=== PATIENT | female | born 1975 | race Caucasian/White ===

== ENCOUNTER → 2017-02-02 | Outpatient (CLI) | payer BC ==
[~2017-02-02] MED LIST: FERR325T51 PO; GADAVIST IV PRN
--- NOTE | 2017-02-02 09:42 | DIAGNOSTIC IMAGING REPORT ---
Brain MRI WITH AND WITHOUT CONTRAST HISTORY: R41.3AMNESIA, R51 [place], Z86.39 HX OF ENDOCRINE,NURITIONAL TECHNIQUE: Multiplanar multisequence MRI of the brain was performed both before and after the intravenous administration of contrast. COMPARISON STUDY: Brain MRI 01/24/2009. FINDINGS: Small retention cysts within the right maxillary sinus. The orbits are unremarkable. The mastoid air cells are clear. The major vascular flow voids at the skull base are there is no hematoma, midline shift, acute infarct. There is a partially enhancing 8 x 6 mm nodule within the right side of the pituitary gland. This is new from the prior study. No change in the 12 x 9 mm nonenhancing T2 hyperintense lesion at the pineal gland. This is consistent with a pineal gland cyst. The ventricles are stable in size. No hydrocephalus. IMPRESSION: 1. No change in the 12 x 9 mm linear gland cyst. 2. There is an 8 x 6 mm partially enhancing nodule within the right side of the pituitary gland. 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 Electronically signed by: Kimani Bush M.D. 02/02/2017 9:40 AM Dictated Date/Time: 02/02/2017 9:33 AM
== END | disposition home or self-care (01) ==
LOC: C.MRI 08:18
PROVIDERS: ATTEND Nurse Practitioner Family
DX: R41.3 Other amnesia (principal); R51 Headache; Z86.39 Personal history of other endocrine, nutritional and metabolic disease

== ENCOUNTER → 2017-02-18 | Outpatient (CLI) | payer BC ==
[~2017-02-18] MED LIST changes: -GADAVIST IV PRN
[2017-02-24 14:02] LABS: HERPES SIMPLEX CULT SOURCE GENITAL-VULVAR LESIO; HERPES SIMPLEX VIRUS CULT ISOLATED (NOT ISOLATED)
[2017-02-25 14:24] LABS: HSVTYPE2REFLEX ONLY!DON'T ORDR ISOLATED (NOT ISOLATED)
== END | disposition home or self-care (01) ==
LOC: C.LABSPEC 13:28
PROVIDERS: ATTEND Obstetrics & Gynecology
DX: N90.89 Other specified noninflammatory disorders of vulva and perineum (principal)

== ENCOUNTER → 2017-02-27 | Outpatient (CLI) | payer BC ==
--- NOTE | 2017-03-02 14:45 | MAMMOGRAPHY REPORT ---
BILATERAL DIGITAL SCREENING MAMMOGRAM WITH CAD: 02/27/2017 TECHNIQUE: Current study was also evaluated with a Computer Aided Detection (CAD) system. Bilatera l CC and MLO views including implant displaced views were obtained. COMPARISON: Comparison is made to exams dated: 10/17/2014 mammogram and 02/12/2011 mammogram - [facility]. BREAST COMPOSITION: The tissue of both breasts is extremely dense, which lowers the sensitivity of mammography. FINDINGS: There is a nodular 5 mm asymmetry seen within the left inferior subareolar region on the implant displaced MLO view only, which may represent normal overlapping fibroglandular tissue althou gh spot compression tomosynthesis views and possible breast ultrasound are recommended for further e valuation. The remainder of both breasts are stable compared to prior exams, without suspicious masses, calcifi cations, or areas of architectural distortion noted. Bilateral subpectoral saline implants are agai n noted. IMPRESSION: ACR BI-RADS CATEGORY 0: INCOMPLETE EVALUATION: NEED ADDITIONAL IMAGING EVALUATION Left breast asymmetry, for which additional imaging evaluation is recommended. The patient will be called to schedule an appointment. Approximately 10% of breast cancers are not detected with mammography. A negative mammographic repor t should not delay biopsy if a clinically suggestive mass is present. Lacie Ramos M.D. ah/:02/27/2017 16:40:46 Teaseler: Saige ROSEN)(Luis Felipe), [facility] letter sent: Addl Imaging 0 BI-RADS Code: ACR BI-RADS Category 0: Incomplete Evaluation: Need Additional Imaging Evaluation
== END | disposition home or self-care (01) ==
LOC: C.MAMM 11:10
PROVIDERS: ATTEND Obstetrics & Gynecology
DX: Z12.31 Encounter for screening mammogram for malignant neoplasm of breast (principal); Z98.82 Breast implant status; N64.89 Other specified disorders of breast

== ENCOUNTER → 2017-07-01 | Outpatient (CLI) | payer BC ==
--- NOTE | 2017-07-01 14:19 | MAMMOGRAPHY REPORT ---
UNILATERAL LEFT DIGITAL DIAGNOSTIC MAMMOGRAM TOMOSYNTHESIS AND TARGETED LEFT ULTRASOUND: 07/01/2017 CLINICAL HISTORY: Callback from screening mammogram for left breast asymmetry. TECHNIQUE: Breast tomosynthesis in addition to standard 2D mammography was performed. Spot compress ion implant displaced CC and MLO tomosynthesis images including C views and left MLO implant displace d 2-D and tomosynthesis images were obtained. COMPARISON: Comparison is made to exams dated: 02/27/2017 mammogram, 10/17/2014 mammogram, 02/12/2011 mammogram - [facility], and 11/15/2001 mammogram - [facility]. BREAST COMPOSITION: The tissue of the left breast is extremely dense, which lowers the sensitivity o f mammography. FINDINGS: The previously described nodular asymmetry seen within the left inferior subareolar region effaces on the additional images, and has the appearance of normal fibroglandular tissue on the tomos ynthesis images. No suspicious mass or architectural distortion is noted on the additional views. Targeted ultrasound was performed of the left breast in the region of the asymmetry seen on one view only, in the left subareolar breast as well as 3 and 9:00 breast. Sonographically normal tissue is s een in these regions, without evidence of a mass or other suspicious sonographic abnormality. IMPRESSION: ACR BI-RADS CATEGORY 2: BENIGN, TARGETED ULTRASOUND ACR BI-RADS CATEGORY 2: BENIGN The left breast asymmetry effaces on the additional views, without corresponding sonographic abnormal ity evident. Findings are benign and compatible with normal fibroglandular tissue. There is no mamm ographic or targeted sonographic evidence of malignancy. Return to annual mammogram screening schedul e is recommended, due February 2018. The patient has been verbally notified of the results. Approximately 10% of breast cancers are not detected with mammography. A negative mammographic report should not delay biopsy if a clinically suggestive mass is present. Lacie Ramos M.D. /:07/01/2017 13:06:38 Statistical Clerk: Saige ROSEN)(Luis Felipe), [facility] letter sent: Normal 1/2 BI-RADS Code: ACR BI-RADS Category 2: Benign Ultrasound BI-RADS: ACR BI-RADS Category 2: Benign
== END | disposition home or self-care (01) ==
LOC: C.MAMM 12:42
PROVIDERS: ATTEND Obstetrics & Gynecology
DX: N64.89 Other specified disorders of breast (principal)

== ENCOUNTER → 2018-03-11 | Outpatient (CLI) | payer OTHER | END | disposition home or self-care (01) | LOC: C.LABSPEC 17:51 | PROVIDERS: ATTEND Obstetrics & Gynecology | DX: R30.0 Dysuria (principal) ==

== ENCOUNTER → 2018-05-17 | Day surgery (SDC) | payer OTHER ==
[2018-04-13 15:09] VITALS: Ht 162.6 cm; Wt 54.5 kg
[~2018-05-17] VITALS: Ht 162.6 cm; Wt 54.5 kg
[~2018-05-17] MED LIST changes: -FERR325T51 PO; +LACTATED RINGER'S 1000ML 1,000 ML IV SCH
== END | disposition home or self-care (01) ==
LOC: EDSTATUS 07:00 → C.PAT 16:25
PROVIDERS: ATTEND Obstetrics & Gynecology
DX: N93.9 Abnormal uterine and vaginal bleeding, unspecified (principal); Z53.9 Procedure and treatment not carried out, unspecified reason